=== PATIENT | male | born 1965 | race Caucasian/White ===

== ENCOUNTER 2017-03-07 08:50 | Day surgery (SDC) | payer BC ==
[~2017-03-07] VITALS: Ht 177.8 cm; Wt 105.9 kg
[~2017-03-07 08:50] MED LIST: ATOR40TA2 PO; LACTATED RINGERS 1,000 ML IV SCH; ROSU40TA PO; SODIUM CHLORIDE FLUSH 3 ML SYR IV PRN
--- OUTSIDE RECORDS SUMMARY | 2017-03-07 08:54 | XMS REPORT | Continuity of Care Document ---
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 Role Phone Dirk Lynch MD PP [phone] Insurance Providers Payer Name Policy Number Subscriber Name Relationship [facility]/[employer] [place] [id number] Johnny Puckett V 16 Self / Same As Patient Advance Directives Directive Response Recorded Date Advanced Directives No 09/05/13 7:47am Problems Medical Problem Onset Date Ear problem 01/28/13 Laparoscopic cholecystectomy 09/04/13 Allergies, Adverse Reactions, Alerts Allergen Type Severity Reaction Last Updated No Known Drug Allergies 01/28/13 Medications Medication Dose Units Route Sig Qty Days Rosuvastatin Calcium (Crestor) 40 Mg PO HS Atorvastatin Calcium (Lipitor) 40 Mg PO DAILY Response Recorded Date/Time Status not known Unknown Results Test Date Result Interp. Ref. Range Lipase September 05, 2013 8:06am 65 U/L N 23-300 Albumin/Globulin Ratio September 05, 2013 8:06am 3.8 H 1.1-1.8 Albumin September 05, 2013 8:06am 4.3 G/ DL N 3.4-5.0 Total Protein September 05, 2013 8:06am 8.1 G/DL N 6.4-8.5 Alanine Aminotransferase (ALT/SGPT) September 05, 2013 8:06am 145 U/L H 30-65 Aspartate Amino Transf (AST/SGOT) September 05, 2013 8:06am 58 U/L H 15-37 Alkaline Phosphatase September 05, 2013 8:06am 129 U/L H 38-126 Total Bilirubin September 05, 2013 8:06am 1.8 MG/DL H 0.1-1.0 Calcium/Ionized Calcium Ratio September 05, 2013 8:06am 3.00 mg/dL - Calcium Level September 05, 2013 8:06am 9.4 MG/DL N 8.8-10.8 Calculated Osmolality September 05, 2013 8:06am 276 MOSM/L L 280-300 Glucose Level September 05, 2013 8:06am 98 MG/DL N 70-110 Estimated GFR (Non- September 05, 2013 8:06am 89.7 - Estimat Glomerular Filtration Rate September 05, 2013 8:06am 108.5 - BUN/Creatinine Ratio September 05, 2013 8:06am 12 N 10-20 Creatinine September 05, 2013 8:06am 0.90 mg/dL N 0.8-1.5 Blood Urea Nitrogen September 05, 2013 8:06am 11 MG/DL N 7-18 Carbon Dioxide Level September 05, 2013 8:06am 29 MMOL/L N 22-29 Chloride Level September 05, 2013 8:06am 102 MMOL/L N 98-108 Potassium Level September 05, 2013 8:06am 4.1 MMOL/L N 3.5-5.1 Sodium Level September 05, 2013 8:06am 143 MMOL/L N 135-150 Basophils # (Auto) September 05, 2013 8:06am 0.0 10^3/uL - Eosinophils # (Auto) September 05, 2013 8:06am 0.2 10^3/uL - Monocytes # (Auto) September 05, 2013 8:06am 0.6 X 10^3 - Lymphocytes # (Auto) September 05, 2013 8:06am 1.6 X 10^3 - Neutrophils # (Auto) September 05, 2013 8:06am 2.8 X 10^3 - Basophils (%) (Auto) September 05, 2013 8:06am 1 % N 0-2 Eosinophils (%) (Auto) September 05, 2013 8:06am 4 % N 0-4 Monocytes (%) (Auto) September 05, 2013 8:06am 11 % N 3-11 Lymphocytes (%) (Auto) September 05, 2013 8:06am 30 % N 20-46 Neutrophils (%) (Auto) September 05, 2013 8:06am 53 % N 51-67 Mean Platelet Volume September 05, 2013 8:06am 10.6 FL H 6.0-9.5 Platelet Count September 05, 2013 8:06am 230 10^3/uL N 150-450 Red Cell Distribution Width September 05, 2013 8:06am 12.8 % N 11.8-15.6 Mean Corpuscular Hemoglobin Concent September 05, 2013 8:06am 33.6 g/dL N 31.0- 37.0 Mean Corpuscular Hemoglobin September 05, 2013 8:06am 29.9 PG N 26.0-34.0 Mean Corpuscular Volume September 05, 2013 8:06am 89 FL N 80-100 Hematocrit September 05, 2013 8:06am 43.80 % N 39.00-50.00 Hemoglobin September 05, 2013 8:06am 14.7 g/dL N 13.5-17.0 Red Blood Count September 05, 2013 8:06am 4.91 10^6/uL N 4.50-5.50 White Blood Count September 05, 2013 8:06am 5.29 10^3/uL N 4.0-11.0 C-Reactive Protein August 10, 2013 3:35pm 1.90 MG/DL H 0.0-0.9 Encounters Encounter Location Date/Time Departed Emergency Room [facility] 01/28/13 4:44pm
[2017-03-07 09:15] VITALS: BP 130/92
[2017-03-07] MEDS ORDERED: ALFENTANIL 500 MCG/ML (ALFENTA) 5 ML AMP IV ONE (10:20)
[2017-03-07] MEDS ORDERED: PROPOFOL 20 ML IV ONE ×2 (10:20)
[2017-03-07] MEDS ORDERED: MIDAZOLAM 2 MG/2 ML (VERSED) VIAL ONE (10:20)
[2017-03-07 10:59] VITALS: BP 117/76
[2017-03-07 11:17] VITALS: BP 123/77
--- NOTE | 2017-03-07 13:19 | OPERATIVE REPORT ---
DATE OF OPERATION: 03/07/2017 PRE-OPERATIVE DIAGNOSIS: 1. Colon screening. 2. Family history of colon cancer. POST-OPERATIVE DIAGNOSIS: 1. Colon screening. 2. Family history of colon cancer. 3. Sigmoid polyp. OPERATIVE PROCEDURE: Total colonoscopy with forceps polypectomy. SURGEON: Rajinder Garay MD ANESTHESIA: IV conscious sedation, Monitored Anesthesia Services POSITION: Left lateral decubitus ESTIMATED BLOOD LOSS: Minimal FINDINGS: This patient was noted to have a tiny sessile polyp in the mid sigmoid colon. The remainder of the colon mucosa appeared normal. Prep was good. OPERATIVE NOTE: Following satisfactory induction of analgesia a digital rectal exam was performed. This revealed a small, slightly enlarged prostate. No rectal mass was palpable. Sphincter tone was normal. Next the colonoscope was introduced per rectum and advanced under CO2 insufflation and direct vision to the cecum. The cecum was identified by convergence of the teniae, ileocecal valve, and palpation/transillumination of the right lower quadrant. Building Drafter photographs were obtained. The above areas were carefully inspected again as the scope was slowly withdrawn. The polyp was removed using cold biopsy forceps and submitted to pathology. Good hemostasis was noted at the polypectomy site. Retroflexed view of the rectum was normal. Excess insufflated CO2 was evacuated and the scope removed. The patient tolerated the procedure well and transferred to recovery in stable condition. RECOMMENDATIONS: Pending biopsy results, the patient will need to have repeat screening in 5 years because of his family history even if this is not an adenomatous polyp.
== END 2017-03-07 11:19 | disposition home or self-care (01) ==
LOC: ASC 08:50
PROVIDERS: ATTEND Surgery
PROC: 0DBN8ZX Excision of Sigmoid Colon, Via Natural or Artificial Opening Endoscopic, Diagnostic (ICD-10-PCS; principal; 2017-03-07)
DX: Z12.11 Encounter for screening for malignant neoplasm of colon (principal); Z80.0 Family history of malignant neoplasm of digestive organs; E66.9 Obesity, unspecified; Z68.35 Body mass index [BMI] 35.0-35.9, adult; Z87.891 Personal history of nicotine dependence
CPT/HCPCS: 45380; J2250; J7120